=== PATIENT | male | born 1965 | race Caucasian/White ===

== ENCOUNTER 2017-02-08 10:30 | Emergency (ER) | payer OTHER ==
[~2017-02-08] VITALS: Ht 193 cm; Wt 135.2 kg
--- NOTE | 2017-02-08 10:30 | NUR ---
ARRIVAL PATIENT ARRIVED TO ED3 VIA W/C, C/O OF LEFT ARM NUMBNESS AND PAIN THAT RADIATES UP THE LEFT ARM, PAIN HAS GROWN INTENSITY, DECIDED HE NEEDED TO BE SEEN IN THE ED FOR FURTHER EVAL.
--- NOTE | 2017-02-08 10:42 | ER.PDOC ---
General Chief Complaint: Chest Pain-Cardiac Nature Stated Complaint: CHEST NUMBNESS Time seen by MD: 10:30 Source: patient Exam Limitations: no limitations History of Present Illness Initial Comments Pt noticed left arm numbness and pain as he woke up this morning, progressed into his chest as the day went on, and getting stronger Severity/Quality: moderate Radiation: arms, shoulders (left) Prior CP/Workup: No Prior Chest Pain Nitro Today/Relief: No Nitro Taken Today Aspirin Today: No Aspirin Today Associated Symptoms: denies symptoms Allergies: Coded Allergies: No Known Allergies (Unverified , 02/08/17) Home Meds No Active Prescriptions or Reported Meds Past Medical History Medical History: no pertinent history Surgical History: no surgical history, appendectomy, back Social History Smoking: cigarettes, less than 1 pack/day Alcohol Use: none Drug Use: none Constitutional: see HPI EENTM: see HPI Respiratory: see HPI Cardiovascular: see HPI Gastrointestinal: see HPI Genitourinary: see HPI Musculoskeletal: see HPI Skin: see HPI Psychiatric/Neurological: see HPI Endocrine: see HPI Hematologic/Lymphatic: see HPI Physical Exam General Appearance: No Apparent Distress, WD/WN HEENT: PERRL/EOMI, Normal ENT Inspection, TMs Normal, Pharynx Normal Neck: Non-Tender, Full Range of Motion, Supple, Normal Inspection Respiratory: chest non-tender, lungs clear, normal breath sounds, no respiratory distress, no accessory muscle use Cardiovascular: Normal Peripheral Pulses, Regular Rate, Rhythm, No Edema, No Gallop, No JVD, No Murmur Gastrointestinal: Normal Bowel Sounds, No Organomegaly, No Pulsatile Mass, Non Tender, Soft Extremities: Normal Range of Motion, Non-Tender, Normal Inspection, No Pedal Edema, No Calf Tenderness, Normal Capillary Refill 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
[2017-02-08] MEDS ORDERED: ASPIRIN ONE (10:46)
[2017-02-08 10:54] LABS: BASOPHIL # 0.1 10^3/uL (0.0-0.1); BASOPHIL % 0.6 % (0.0-0.2); EOSINOPHIL # 0.3 10^3/uL (0.0-0.2); EOSINOPHIL % 3.7 % (0.0-5.0); HEMATOCRIT 41.3 % (37.0-53.0); HEMOGLOBIN 14.3 g/dL (13.9-16.3); LYMPHOCYTES # 2.1 10^3/uL (1.0-4.8); LYMPHOCYTES % 27.1 % (24.0-44.0); MEAN CELL HGB 28.7 pg (26-34); MEAN CELL HGB CONCENTRATION 34.6 g/dL (33-37); MEAN CORP VOLUME 82.8 fL (78-100); MEAN PLATELET VOLUME 10.6 fL (7.8-11.0); MONOCYTES # 0.7 10^3/uL (0.3-0.8); MONOCYTES % 8.5 % (5.0-12.0); NEUTROPHIL # 4.6 10^3/uL (1.8-7.7); NEUTROPHILS % 59.7 % (41.0-85.0); RED CELL DISTRIBUTION WIDTH 13.3 % (11.5-14.5); WHITE BLOOD CELL 7.8 10^3/uL (4.5-11.0)
[2017-02-08] MEDS ORDERED: NITROSTAT SL PRN (11:00)
[2017-02-08] MEDS ORDERED: ASPIRIN PO PRN (11:00)
--- NOTE | 2017-02-08 11:14 | DIREP ---
PROCEDURE:CHEST 1 VIEW COMPARISON:None. INDICATIONS:CP FINDINGS: LUNGS/PLEURA:No significant pulmonary parenchymal abnormalities. No effusions. VASCULATURE:Normal. Unremarkable pulmonary vasculature. CARDIAC:Normal. No cardiac silhouette abnormality or cardiomegaly. MEDIASTINUM:Normal. No visible mass or adenopathy. BONES:Normal. No fracture or visible bony lesion. OTHER:Negative. CONCLUSION:Normal examination. Dictated by: Marvin Aamya M.D. on 02/08/2017 at 11:13 AM
[2017-02-08] MEDS ORDERED: MOTRIN ONE (11:20)
[2017-02-08 11:23] LABS: ALANINE AMINOTRANSFERASE 28 U/L (12-78); ALKALINE PHOSPHATASE 83 U/L (50-136); ASPARTATE AMINO TRANSFERASE 11 U/L (0-35); CALCIUM 9.2 mg/dL (8.4-10.5); CARBON DIOXIDE 23.7 mmol/L (20.0-32); GLUCOSE 106 mg/dL (70-110)
[2017-02-08] MEDS ORDERED: MOTRIN PO STA (11:23)
--- NOTE | 2017-02-08 11:44 | NUR ---
STATUS PATIENT GIVEN A LIST OF MEDICAL PROVIDERS AND TOLD TO RETURN IF NEEDED, LEFT ED AMBULATORY TO POV, REMAINS AWAKE ALERT ORIENTED X4, NO DISTRESS NOTED.
[2017-02-08 11:47] VITALS: BP 139/71
== END 2017-02-08 11:44 | disposition home or self-care (01) ==
LOC: ER 10:30
DX: M53.1 Cervicobrachial syndrome (principal); R07.9 Chest pain, unspecified; F17.210 Nicotine dependence, cigarettes, uncomplicated
CPT/HCPCS: 36415; 71010; 80053; 82550; 83880; 84484; 85025; 85610; 85730; 93005; 99285